=== PATIENT | female | born 1990 | race Caucasian/White ===

== ENCOUNTER 2017-11-16 18:50 | Emergency (ER) | payer BC ==
--- NOTE | 2017-11-16 19:07 | PDOC ---
Rapid Medical Evaluation Time Seen by Provider: 11/16/17 19:04 Medical Evaluation: 11/16/17 19:04 I have performed a brief in-person evaluation of this patient. The patient presents with a chief complaint of: back pain x3 weeks Pertinent physical exam findings: tenderness to right paraspinous muscles I have ordered the following: urine preg, ua The patient will proceed to the ED for further evaluation. Discharge Disposition - Diagnosis Back pain - Referrals - Patient Instructions - Post Discharge Activity
[2017-11-16 19:15] VITALS: BP 175/115; PULSE 76; TEMP 98.1; BMI 26.6
[2017-11-16] MEDS ORDERED: KETOROLAC TROMETHAMINE 60 MG/2 ML VIAL IM ONE (19:37)
[2017-11-16] MEDS ORDERED: CYCLOBENZAPRINE HCL 10 MG TABLET (FP) PO ONE (19:37)
--- NOTE | 2017-11-16 19:43 | PDOC ---
History of Present Illness - General Chief Complaint: Back Pain Stated Complaint: PAIN Time Seen by Provider: 11/16/17 19:04 History Source: Patient Exam Limitations: No Limitations - History of Present Illness Initial Comments: 11/16/17 19:38 Evaluation of chronic back pain that's worsening. States onset was approximately one month ago where she sustained a spasm to her low back which is progressively worsening. Was seen at [facility] and given a shot of anti-inflammatory is uncertain as to name and states had much improvement however received no other medications including the antispasmodic where she thought would be prescribed. Since that time patient has continued to work, has tried icy hot and some [id number] Tylenol/or Motrin with minimal resolved. Denies numbness or tingling hands or feet, denies any problems with bowel or bladder. States pain spreads across her lower back below her waist and is progressively worsening. Severity: reports: moderate Pain Location: reports: back Associated Symptoms (Fall): denies symptoms Past History - Travel Traveled outside of the country in the last 30 days: No Close contact w/someone who was outside of country & ill: No - Past Medical History Allergies/Adverse Reactions: Allergies Allergy/AdvReac Type Severity Reaction Status Date / Time No Known Allergies Allergy Verified 11/16/17 19:09 Home Medications: Ambulatory Orders Cyclobenzaprine HCl 10 mg PO Q8H PRN #14 tablet 11/16/17 Naproxen [Naprosyn -] 500 mg PO TID #30 tablet 11/16/17 COPD: No - Suicide/Smoking/Psychosocial Hx Smoking History: Never smoked Review of Systems - Review of Systems Able to Perform ROS?: Yes Is the patient limited Cam[place]onian proficient: Yes Constitutional: Yes: Symptoms Reported, See HPI, Malaise. No: Fever HEENTM: Yes: See HPI. No: Symptoms Reported Respiratory: Yes: See HPI. No: Symptoms reported, Cough Musculoskeletal: Yes: Symptoms Reported, See HPI, Back Pain, Muscle Pain. No: Joint Pain Integumentary: Yes: See HPI. No: Symptoms Reported, Bruising, Rash All Other Systems: Reviewed and Negative *Physical Exam - Vital Signs Last Vital Signs Temp Pulse Resp BP Pulse Ox 98.1 F 76 18 175/115 100 11/16/17 19:04 11/16/17 19:04 11/16/17 19:04 11/16/17 19:04 11/16/17 19:04 - Physical Exam General Appearance: Yes: Nourished, Appropriately Dressed, Apparent Distress HEENT: positive: ZENA[place], Normal ENT Inspection, TMs Normal, Pharynx Normal Neck: positive: Supple, Lymphadenopathy (R), Lymphadenopathy (L). negative: Tender Respiratory/Chest: positive: Lungs Clear Gastrointestinal/Abdominal: positive: Soft. negative: Tender Musculoskeletal: positive: Normal Inspection, Muscle Spasm (topical spasm noted along the paravertebral spinous muscles at waist line and extending to lower lumbar area. Has no true bone tenderness but range of motion is limited secondary to the spasm.). negative: Vertebral Tenderness Extremity: positive: Normal Capillary Refill, Normal Inspection. negative: Normal Range of Motion Integumentary: positive: Normal Color, Dry, Warm. negative: Swelling, Ecchymosis Neurologic: positive: cardiovascular tech II-XII NML intact, Fully Oriented, Alert, Normal Mood/ Affect, Normal Response, Motor Strength 5/5 Progress Note - Progress Note Progress Note: Low back spasm, we'll treat with NSAIDs and cyclobenzaprine *DC/Admit/Observation/Transfer Diagnosis at time of Disposition: Muscle spasm of back - Discharge Dispostion Disposition: HOME Condition at time of disposition: Stable Decision to Admit order: No - Referrals - Patient Instructions Printed Discharge Instructions: DI for Back Strain or Sprain Additional Instructions: Rest, no heavy lifting or exercise until pain is resolved Hot soaks to neck and low back as often as possible/hot showers or Jacuzzis No massage or therapy until spasm is gone Continue Naprosyn 500 mg tablet, 1 tablet every 8 hours for the next 3 days then as needed for pain and swelling Cyclobenzaprine 1-10mg every 8 hours as needed for spasm If not significant improvement within 24 hours with medication and rest regime, followup with private physician for change in medications and /or therapy. - Post Discharge Activity Forms/Work/School Notes: Back to Work
[2017-11-16] MEDS ORDERED: CYCLOBENZAPRINE HCL 10 MG TABLET (FP) ONE (19:47)
[2017-11-16] MEDS ORDERED: KETOROLAC TROMETHAMINE 60 MG/2 ML VIAL ONE ×2 (19:48→20:29)
[2017-11-16 19:49] LABS: URINE APPEARANCE SLCLOUDY; URINE BILIRUBIN NEGATIVE (<2.0 mg/dL); URINE COLOR LTYELLOW; URINE GLUCOSE (UA) NEGATIVE (NEGATIVE); URINE KETONE NEGATIVE (NEGATIVE); URINE LEUK ESTERASE TRACE (NEGATIVE); URINE NITRITE NEGATIVE (NEGATIVE); URINE PROTEIN NEGATIVE (NEGATIVE); URINE UROBILINOGEN NEGATIVE mg/dL (0.2-1.0)
--- NOTE | 2017-11-16 19:52 | PDOC ---
History of Present Illness - General Chief Complaint: Back Pain Stated Complaint: PAIN Time Seen by Provider: 11/16/17 19:04 History Source: Patient Exam Limitations: No Limitations - History of Present Illness Occurred: reports: other (3 WEEKS) Past History - Travel Traveled outside of the country in the last 30 days: No Close contact w/someone who was outside of country & ill: No - Past Medical History Allergies/Adverse Reactions: Allergies Allergy/AdvReac Type Severity Reaction Status Date / Time No Known Allergies Allergy Verified 11/16/17 19:09 Home Medications: Ambulatory Orders NK [No Known Home Medication] 11/16/17 COPD: No - Suicide/Smoking/Psychosocial Hx Smoking History: Never smoked Review of Systems - Review of Systems Able to Perform ROS?: Yes Is the patient limited [place] proficient: Yes Constitutional: Yes: Symptoms Reported, See HPI, Malaise HEENTM: No: Symptoms Reported Respiratory: Yes: See HPI. No: Symptoms reported, Cough Musculoskeletal: Yes: Symptoms Reported, See HPI, Back Pain *Physical Exam - Vital Signs Last Vital Signs Temp Pulse Resp BP Pulse Ox 98.1 F 76 18 175/115 100 11/16/17 19:04 11/16/17 19:04 11/16/17 19:04 11/16/17 19:04 11/16/17 19:04 *DC/Admit/Observation/Transfer Diagnosis at time of Disposition: Back pain - Referrals - Patient Instructions - Post Discharge Activity
[2017-11-16 20:30] LABS: HCG,QUALITATIVE URINE NEGATIVE
[2017-11-16 20:49] LABS: EPI CELLS FEW /HPF (FEW); URINE MUCUS RARE
== END 2017-11-16 20:34 | disposition home or self-care (01) ==
LOC: JERFT 18:50 → JER 18:50 → JERFT 20:34
PROC: 3E0233Z Introduction of Anti-inflammatory into Muscle, Percutaneous Approach (ICD-10-PCS; principal; 2017-11-16)
DX: M62.830 Muscle spasm of back (principal)
CPT/HCPCS: 81003; 81015; 84703; 87086; 99281-25

== ENCOUNTER 2018-02-27 10:25 | Emergency (ER) | payer BC ==
[2018-02-27 10:41] VITALS: BP 182/143; PULSE 80; TEMP 98.2; BMI 26.6
--- NOTE | 2018-02-27 11:02 | PDOC ---
History of Present Illness - General Chief Complaint: Blood Pressure Problem Stated Complaint: SEVERE HIGH BLOOD PRESURE 179/135/ HIVES Time Seen by Provider: 02/27/18 10:50 History Source: Patient - History of Present Illness Timing/Duration: other Past History - Past Medical History Allergies/Adverse Reactions: Allergies Allergy/AdvReac Type Severity Reaction Status Date / Time No Known Allergies Allergy Verified 02/27/18 10:36 Home Medications: Ambulatory Orders Methylprednisolone [Medrol Dose Bony] 4 mg PO ASDIR #21 tablet 02/27/18 COPD: No HTN: Yes - Immunization History Immunization Up to Date: Yes - Suicide/Smoking/Psychosocial Hx Smoking History: Never smoked Hx Alcohol Use: Yes Drug/Substance Use Hx: No Review of Systems - Review of Systems Constitutional: No: Chills, Fever Respiratory: No: Shortness of Breath Cardiac (ROS): No: Chest Pain, Lightheadedness, Palpitations ABD/GI: No: Nausea, Vomiting Neurological: Yes: Headache. No: Weakness, Dizziness *Physical Exam - Vital Signs Last Vital Signs Temp Pulse Resp BP Pulse Ox 98.2 F 80 18 182/143 H 96 02/27/18 10:36 02/27/18 10:36 02/27/18 10:36 02/27/18 10:36 02/27/18 10:36 - Physical Exam General Appearance: Yes: Appropriately Dressed. No: Apparent Distress HEENT: positive: Normal Voice Neck: positive: Supple Respiratory/Chest: positive: Lungs Clear, Normal Breath Sounds. negative: Respiratory Distress Cardiovascular: positive: Regular Rate, S1, S2 Gastrointestinal/Abdominal: positive: Tender, Soft. negative: Pulsatile Mass Extremity: positive: Normal Inspection Integumentary: positive: Dry, Warm. negative: Rash Neurologic: positive: Fully Oriented, Alert, Normal Mood/Affect Heart Score/ECG Review - ECG Intrepretation Comment:: 02/27/18 11:43 Twelve-lead EKG was performed and reviewed by me. There is normal sinus rhythm with a normal rate. The axis is normal. The intervals are normal. There are no ST or T wave abnormalities. Impression: Normal twelve-lead EKG ED Treatment Course - LABORATORY CBC & Chemistry Diagram: 02/27/18 11:02 02/27/18 11:02 Medical Decision Making - Medical Decision Making 02/27/18 10:56 28-year-old female, h/o HTN since the age of 16 yo (has sig fmhx), took herself off meds ~3 months ago after she states her cards at [facility] told her she may be able to control her BP with diet and exercise, here for evaluation of elevated BP. Pt states she was seen at urgent care this a.m. for pruritic generalized rash for 3 days that improves with benadryl. No obvous inciting factors. States M.D. at urgent care was more concerned because her blood pressure was elevated and referred patient to the ED. Patient states she currently does not check her BP at home. Does report vague ADLER on and off of unclear duration that usually improved w/ motrin. Denies dizziness, visual changes, CP, SOB or any other acute sxs See exam Elevated BP Carries h/o HTN Not currently on meds Asx currently form BP standpoint BP 182/143 in ED, otherwise stable with unremarkable exam -check labs r/o EOD -discuss management w/ outside cards 02/27/18 11:37 Called pt's PMD, Dr Ana Lowe at [facility], left message for MD to call me back 02/27/18 11:40 02/27/18 12:15 EKG and labs unremarkable. Case discussed w/ Dr Tubbs, who reports that she gave patient prescription for inderal (120mg/daily)and hydrochlorothiazide ( 25mg daily) in November of this year and wants patient to start taking meds and see her in 1-2 weeks. Patient informed of plan and admits that she does have medications at home but never took them. Will take as soon as she gets home. Prescription for medrol dosepak called into pharmacy in [place] as unable to locate pharmacy in [place]. Reasons to return to ER discussed w/ patient 02/27/18 12:41 ER staff unable to locate pt in ED. Appears to have eloped with IV in place. Also left without rpt vitals or discharge papers though was informed of plan/ management. I called number in chart but unable to leave message as voicemail full 02/27/18 12:43 *DC/Admit/Observation/Transfer Diagnosis at time of Disposition: Elevated blood pressure reading, Hives - Discharge Dispostion Disposition: ELOPED - Prescriptions Prescriptions: Methylprednisolone [Medrol Dose Bnoy] 4 mg PO ASDIR #21 tablet - Referrals - Patient Instructions Printed Discharge Instructions: Hives, DI for High Blood Pressure Additional Instructions: Please start taking your inderal and hydrochlorothiazide as directed by her PMD. For hives, take Benadryl as directed for itching and start taking the Medrol Dosepak as directed. Please call Dr. Tubbs for an appointment in 1-2 weeks. If any of her symptoms worsen, return to ER immediately - Post Discharge Activity Forms/Work/School Notes: Back to Work
[2018-02-27 11:14] LABS: BASO % 0.5 % (0-2.0); EOS % 1.4 % (0-4.5); HEMATOCRIT 40.5 % (32.4-45.2); HEMOGLOBIN 13.5 GM/dL (10.7-15.3); MCH 29.2 pg (25.7-33.7); MCHC 33.3 g/dl (32.0-36.0); MEAN CELL VOLUME 87.5 fl (80-96); MEAN PLT VOLUME 9.2 fl (7.5-11.1); MONO % 6.5 % (3.8-10.2); NEUT % 69.6 % (42.8-82.8); PLATELET COUNT 354 K/MM3 (134-434); RBC 4.62 M/mm3 (3.60-5.2); RDW 13.3 % (11.6-15.6); WHITE BLOOD COUNT 6.7 K/mm3 (4.0-10.0)
[2018-02-27 11:16] LABS: URINE APPEARANCE CLEAR; URINE BILIRUBIN NEGATIVE (<2.0 mg/dL); URINE COLOR YELLOW; URINE GLUCOSE (UA) NEGATIVE (NEGATIVE); URINE KETONE NEGATIVE (NEGATIVE); URINE LEUK ESTERASE NEGATIVE (NEGATIVE); URINE NITRITE NEGATIVE (NEGATIVE); URINE PROTEIN NEGATIVE (NEGATIVE); URINE UROBILINOGEN NEGATIVE mg/dL (0.2-1.0)
[2018-02-27 11:41] LABS: ALBUMIN 3.9 g/dl (3.4-5.0); ALK PHOS 113 U/L (45-117); ANION GAP 6 MMOL/L (8-16); BILIRUBIN,TOTAL 0.5 mg/dL (0.2-1); BLOOD UREA NITROGEN 13 mg/dL (7-18); CHLORIDE 104 mmol/L (98-107); CO2 28 mmol/L (21-32); CREATININE 0.7 mg/dL (0.55-1.3); GLUCOSE,RANDOM 96 mg/dL (74-106); POTASSIUM 4.7 mmol/L (3.5-5.1); SGOT/AST 33 U/L (15-37); SGPT/ALT 22 U/L (13-61); SODIUM 137 mmol/L (136-145); TOT PROT 8.3 g/dl (6.4-8.2)
--- NOTE | 2018-02-27 11:45 | EKG ---
Test Reason : Blood Pressure : / mmHG Vent. Rate : 067 BPM Atrial Rate : 241 BPM P-R Int : 000 ms QRS Dur : 088 ms QT Int : 436 ms P-R-T Axes : 004 061 055 degrees QTc Int : 460 ms NORMAL ECG Confirmed by Temo Ochoa MD ([id number]) on 02/27/2018 11:44:57 AM Referred By: Confirmed By:Temo Ochoa MD
--- NOTE | 2018-02-27 12:02 | PDOC ---
*Physical Exam - Vital Signs Last Vital Signs Temp Pulse Resp BP Pulse Ox 98.2 F 80 18 182/143 H 100 02/27/18 10:36 02/27/18 10:36 02/27/18 10:36 02/27/18 10:36 02/27/18 11:15 - Physical Exam Comments: 02/27/18 11:57 Blood pressure elevation noted, vitals otherwise normal Well-appearing, conversant, no acute distress Pupils equal round reactive to light, extraocular movements intact, gross visual acuity is normal to hand testing Heart is regular, no murmur. Lungs are clear. No edema Neurologically intact Heart Score/ECG Review #1 General ECG Interpretation: Sinus Rhythm, Normal Rate (67), Normal Intervals, No acute ischemic changes ED Treatment Course - LABORATORY CBC & Chemistry Diagram: 02/27/18 11:02 02/27/18 11:02 - ADDITIONAL ORDERS Additional order review: Laboratory Results 02/27/18 02/27/18 11:02 10:56 Sodium 137 Potassium 4.7 Chloride 104 Carbon Dioxide 28 Anion Gap 6 L BUN 13 Creatinine 0.7 Creat Clearance w eGFR > 60 Random Glucose 96 Calcium 9.0 Total Bilirubin 0.5 AST 33 ALT 22 Alkaline Phosphatase 113 Total Protein 8.3 H Albumin 3.9 Urine Color Yellow Urine Appearance Clear Urine pH 7.0 Ur Specific [place] 1.013 Urine Protein Negative Urine Glucose (UA) Negative Urine Ketones Negative Urine Blood Negative Urine Nitrite Negative Urine Bilirubin Negative Urine Urobilinogen Negative Ur Leukocyte Esterase Negative 02/27/18 11:02 RBC 4.62 MCV 87.5 MCHC 33.3 RDW 13.3 MPV 9.2 Neutrophils % 69.6 Lymphocytes % 22.0 Monocytes % 6.5 Eosinophils % 1.4 Basophils % 0.5 Medical Decision Making - Medical Decision Making 02/27/18 11:59 28-year-old female with history of hypertension noncompliant with medications, presented to urgent care this morning with 2 days of awakening with hives sent to the ED for elevated blood pressures. Has history of mild headaches, reports 1-2 weeks of slightly blurry vision but no vision loss or diplopia, no speech change/nausea/vomiting/focal weakness/ chest pain/shortness of breath. Hives resolved, sent here for evaluation of her elevated blood pressure. EKG nonischemic, no evidence of end organ injury on examination or on blood testing We'll discuss with PCP patient's prior blood pressure regimen and restart, ensure prompt follow-up, understands return criteria. Unclear etiology of the hives, given it is transient can continue with Benadryl , but it persists can start low-dose steroids 02/27/18 12:42 labs normal, remained asx, discussed with PMD and patient has her BP meds at home from November rx. Agrees with d/c plan, can see her in office within 1 week. Benadryl for hives, medrol dose pack sent to pharmacy if sxs persist despite benadryl. plan for repeat BP but pt eloped, will call and attempt contact. *DC/Admit/Observation/Transfer Diagnosis at time of Disposition: Elevated blood pressure reading, Hives - Discharge Dispostion Disposition: HOME - Prescriptions Prescriptions: Methylprednisolone [Medrol Dose Bony] 4 mg PO ASDIR #21 tablet - Referrals - Patient Instructions Printed Discharge Instructions: Hives, DI for High Blood Pressure Additional Instructions: Please start taking your inderal and hydrochlorothiazide as directed by her PMD. For hives, take Benadryl as directed for itching and start taking the Medrol Dosepak as directed. Please call Dr. Tubbs for an appointment in 1-2 weeks. If any of her symptoms worsen, return to ER immediately - Post Discharge Activity Forms/Work/School Notes: Back to Work
== END 2018-02-27 12:45 | disposition home or self-care (01) ==
LOC: JER 10:25
DX: I10 Essential (primary) hypertension (principal); L50.9 Urticaria, unspecified; Z91.14 Patient's other noncompliance with medication regimen
CPT/HCPCS: 36415; 80053; 81003; 84703; 85025; 93005; 93010; 99282-25

== ENCOUNTER 2023-11-26 13:32 | Emergency (ER) | payer BC ==
[2023-11-26 13:38] VITALS: BP 122/93; PULSE 89; RESP 18; TEMP 98.3; BMI 25.8
[2023-11-26] MEDS ORDERED: KETOROLAC TROMETHAMINE 30 MG/1 ML VIAL ONE (14:02)
[2023-11-26] MEDS ORDERED: ACETAMINOPHEN 500 MG TABLET (FP) ONE (14:02)
[2023-11-26] MEDS ORDERED: METHOCARBAMOL 500 MG TABLET ONE (14:02)
[2023-11-26] MEDS ORDERED: LIDOCAINE 4% PATCH TP ONE (14:02)
[2023-11-26] MEDS: KETOROLAC TROMETHAMINE 30 MG/1 ML VIAL IM ONE (14:17)
[2023-11-26] MEDS: LIDOCAINE 4% PATCH TP ONE (14:17)
[2023-11-26] MEDS: METHOCARBAMOL 500 MG TABLET PO ONE (14:17)
[2023-11-26] MEDS: ACETAMINOPHEN 500 MG TABLET (FP) PO ONE (14:17)
[2023-11-26 14:36] LABS: HCG,QUALITATIVE URINE Negative
[2023-11-26 14:38] LABS: PH,URINE 6.5 (5.0-8.0); URINE APPEARANCE CLEAR; URINE BILIRUBIN NEGATIVE (NEGATIVE); URINE COLOR YELLOW; URINE GLUCOSE (UA) NEGATIVE (NEGATIVE); URINE KETONE NEGATIVE (NEGATIVE); URINE LEUK ESTERASE NEGATIVE (NEGATIVE); URINE NITRITE NEGATIVE (NEGATIVE); URINE PROTEIN NEGATIVE (NEGATIVE); URINE UROBILINOGEN 0.2 mg/dL (0.2-1.0)
[2023-11-26] MEDS ORDERED: LIDOCAINE PATCH REMOVAL MC ONE (22:00)
== END 2023-11-26 15:48 | disposition home or self-care (01) ==
LOC: JERFT 13:32
PROC: 3E0233Z Introduction of Anti-inflammatory into Muscle, Percutaneous Approach (ICD-10-PCS; principal; 2023-11-26)
DX: M54.50 Low back pain, unspecified (principal)
CPT/HCPCS: 72100-TC-FY; 81003; 84703; 87086; 99284-25